=== PATIENT | male | born 1965 | race Caucasian/White ===

== ENCOUNTER 2022-03-10 00:46 | Emergency (ER) | payer OTHER ==
[~2022-03-10] VITALS: Ht 175.3 cm; Wt 124.7 kg
[2022-03-10 00:50] VITALS: BP 138/87
== END 2022-03-10 01:22 | disposition left against medical advice (07) ==
LOC: ER 00:46
DX: M79.642 Pain in left hand (principal); Z53.21 Procedure and treatment not carried out due to patient leaving prior to being seen by health care provider